=== PATIENT | female | born 1980 | race Caucasian/White ===

== ENCOUNTER 2019-09-14 09:17 | Outpatient (CLI) | payer OTHER, SELFPAY ==
--- NOTE | ~2019-09-14 | MM_ITS ---
EXAMINATION: MM screening tracie BI w alexi HISTORY: Screening mammogram TECHNIQUE: Craniocaudal and mediolateral oblique 3-D tomosynthesis images were obtained and synthetic 2-D images were generated. CAD analysis was submitted and interpreted. COMPARISON: No prior mammogram is available for comparison at this institution. BREAST PARENCHYMAL COMPOSITION: The breasts are heterogeneously dense, which may obscure small masses . FINDINGS: There is mild fibroglandular asymmetry. There is no evidence of suspicious mass, calcificat ion, or architectural distortion to suggest malignancy in either breast. There has been no suspicious interval change. IMPRESSION: 1. No mammographic evidence of malignancy. 2. Recommend routine screening mammography in one year. BI-RADS Category 2: Benign finding(s). Reviewed, dictated and finalized at location A.
== END 2019-09-14 09:18 | disposition home or self-care (01) ==
LOC: ANHIMG 09:19
PROVIDERS: PCP Internal Medicine; Visit Provider Obstetrics & Gynecology
DX: Z12.31 Encounter for screening mammogram for malignant neoplasm of breast (principal)
CPT/HCPCS: 77063; 77067

== ENCOUNTER 2020-09-19 14:12 | Outpatient (CLI) | payer OTHER, SELFPAY ==
--- NOTE | ~2020-09-19 | MM_ITS ---
EXAMINATION: MM screening tracie BI w alexi HISTORY: Screening TECHNIQUE: Craniocaudal and mediolateral oblique 3-D tomosynthesis images were obtained and synthetic 2-D images were generated. CAD analysis was submitted and interpreted. COMPARISON: 09/14/2019 BREAST PARENCHYMAL COMPOSITION: The breasts are heterogeneously dense, which may obscure small masses . FINDINGS: There is no evidence of suspicious mass, calcification, or architectural distortion to sugg est malignancy in either breast. There has been no suspicious interval change. IMPRESSION: 1. No mammographic evidence of malignancy. 2. Recommend routine screening mammography in one year. BI-RADS Category 1: Negative Reviewed, dictated and finalized at location A.
== END 2020-09-19 14:13 | disposition home or self-care (01) ==
LOC: ANHIMG 14:14
PROVIDERS: PCP Internal Medicine; Visit Provider Obstetrics & Gynecology
DX: Z12.31 Encounter for screening mammogram for malignant neoplasm of breast (principal)
CPT/HCPCS: 77063; 77067

== ENCOUNTER 2021-11-13 07:15 | Outpatient (CLI) | payer BC, SELFPAY ==
--- NOTE | ~2021-11-13 | MM_ITS ---
EXAMINATION: MM screening tracie BI w alexi HISTORY: Screening mammogram TECHNIQUE: Craniocaudal and mediolateral oblique 3-D tomosynthesis images were obtained and synthetic 2-D images were generated. CAD analysis was submitted and interpreted. COMPARISON: 09/19/2020, 09/14/2019 bilateral screening mammogram examinations BREAST PARENCHYMAL COMPOSITION: The breasts are heterogeneously dense, which may obscure small masses . FINDINGS: Stable fibroglandular asymmetry. There is no evidence of suspicious mass, calcification, or architectural distortion to suggest malignancy in either breast. There has been no suspicious interv al change. IMPRESSION: 1. No mammographic evidence of malignancy. 2. Recommend routine screening mammography in one year. BI-RADS Category 2: Benign finding(s). Reviewed, dictated and finalized at location A.
== END 2021-11-13 07:16 | disposition home or self-care (01) ==
LOC: CHSIMG 07:16
PROVIDERS: PCP Internal Medicine; Visit Provider Internal Medicine
DX: Z12.31 Encounter for screening mammogram for malignant neoplasm of breast (principal)
CPT/HCPCS: 77063; 77067

== ENCOUNTER 2023-01-13 07:20 | Outpatient (CLI) | payer OTHER, SELFPAY ==
--- NOTE | ~2023-01-13 | MM_ITS ---
EXAMINATION: MM screening tracie BI w alexi HISTORY: Screening mammogram TECHNIQUE: Craniocaudal and mediolateral oblique 3-D tomosynthesis images were obtained and synthetic 2-D images were generated. CAD analysis was submitted and interpreted. COMPARISON: 11/13/2021, a 321, 09/14/2019 BREAST PARENCHYMAL COMPOSITION:The breasts are heterogeneously dense, which may obscure small masses. FINDINGS: No suspicious mass, calcification, or architectural distortion are identified in either jerry ast to suggest malignancy. There has been no suspicious interval change. IMPRESSION: No mammographic evidence of malignancy. Recommend routine screening mammography in one year. BI-RADS Category 1: Negative Reviewed, dictated and finalized at location . ER TENDER
== END 2023-01-13 07:21 | disposition home or self-care (01) ==
LOC: CHSIMG 07:23
PROVIDERS: PCP Internal Medicine; Visit Provider Obstetrics & Gynecology
DX: Z12.31 Encounter for screening mammogram for malignant neoplasm of breast (principal)
CPT/HCPCS: 77063; 77067

== ENCOUNTER 2023-05-03 07:48 | Outpatient (CLI) | payer OTHER, SELFPAY ==
[2023-05-03 08:19] LABS: Appearance Urine Clear (Clear); Basophils Absolute Auto 0.05 K/mm3 (0.00-0.10); Basophils Percent Auto 0.7 % (0.0-1.0); Bilirubin Urine Negative (Negative); Blood Urine Negative (Negative); Color Urine Yellow (Yellow); Eosinophils Absolute Auto 0.25 K/mm3 (0.02-0.50); Eosinophils Percent Auto 3.7 % (1.0-6.0); Glucose Urine UA Negative (Negative); Hematocrit 42.2 % (35.0-49.0); Hemoglobin 14.1 g/dL (12.0-15.0); Immature Granulocyte Absolute 0.01 K/mm3 (0.00-0.00); Immature Granulocyte Percent A 0.1 % (0.0-0.0); Ketones Urine Negative (Negative); Leukocyte Esterase Ur Negative LEU/UL (Negative); Lymphocytes Absolute Auto 1.95 K/mm3 (1.10-4.50); Lymphocytes Percent Auto 28.7 % (18.0-42.0); Mean Corpuscular HGB Conc 33.4 g/dL (32-36); Mean Corpuscular Hemoglobin 32.5 pg (27.0-31.0); Mean Corpuscular Volume 97.2 fL (78.0-102.0); Monocytes Absolute Auto 0.45 K/mm3 (0.10-0.90); Monocytes Percent Auto 6.6 % (2.0-11.0); Neutrophils Absolute Auto 4.09 K/mm3 (1.70-7.20); Neutrophils Percent Auto 60.2 % (50.0-70.0); Nitrate Urine Negative (Negative); Platelet Count Result 269 K/mm3 (150-420); Protein Urine Negative (Negative); Red Blood Count 4.34 M/mm3 (4.20-5.40); Red Cell Distribution Width 11.7 % (11.6-14.4); Urobilinogen Urine 0.2 mg/dL (0.2-1.0); White Blood Count 6.8 K/mm3 (4.8-10.8)
[2023-05-03 08:22] LABS: Add Urine Microscopic? NO
[2023-05-03 10:19] LABS: Alanine Aminotransferase 25 U/L (14-59); Albumin Level 3.6 g/dL (3.4-5.0); Alkaline Phosphatase 50 U/L (46-116); Anion Gap 10 mmol/L (8-16); Aspartate Amino Transferase 13 U/L (15-37); Bilirubin,Total 0.3 mg/dL (0.00-1.00); Blood Urea Nitrogen 13 mg/dL (7-18); Calcium 8.7 mg/dL (8.5-10.1); Carbon Dioxide 28 mmol/L (21-32); Chloride 106 mmol/L (98-108); Cholesterol 167 mg/dL (0-200); Estimated Glomerular Filt Rate > 60; Glucose 86 mg/dL (70-99); HDL Direct 66 mg/dL (40-60); LDL Cholesterol Calculated 86 mg/dL (<130); Osmolality Calculated 297 mOsm/kg (285-295); Potassium 4.4 mmol/L (3.5-5.1); Sodium 144 mmol/L (136-145); Total Protein 6.6 g/dL (6.4-8.2); Triglycerides 73 mg/dL (0-150)
== END 2023-05-03 07:49 | disposition home or self-care (01) ==
LOC: CHSLAB 07:51
PROVIDERS: PCP Internal Medicine; Visit Provider Internal Medicine
DX: Z00.00 Encounter for general adult medical examination without abnormal findings (principal); N39.0 Urinary tract infection, site not specified
CPT/HCPCS: 36415; 80053; 80061; 81003; 84443; 85025

== ENCOUNTER 2023-06-14 09:09 | Outpatient (CLI) | payer OTHER, SELFPAY ==
[2023-06-14 09:21] LABS: Basophils Absolute Auto 0.05 K/mm3 (0.00-0.10); Eosinophils Absolute Auto 0.13 K/mm3 (0.02-0.50); Eosinophils Percent Auto 2.5 % (1.0-6.0); Hematocrit 43.8 % (35.0-49.0); Hemoglobin 14.6 g/dL (12.0-15.0); Immature Granulocyte Absolute 0.01 K/mm3 (0.00-0.00); Immature Granulocyte Percent A 0.2 % (0.0-0.0); Lymphocytes Absolute Auto 1.44 K/mm3 (1.10-4.50); Lymphocytes Percent Auto 28.1 % (18.0-42.0); Mean Corpuscular HGB Conc 33.3 g/dL (32-36); Mean Corpuscular Hemoglobin 32.5 pg (27.0-31.0); Mean Corpuscular Volume 97.6 fL (78.0-102.0); Mean Platelet Volume 9.9 fl (9.2-11.8); Monocytes Absolute Auto 0.37 K/mm3 (0.10-0.90); Monocytes Percent Auto 7.2 % (2.0-11.0); Neutrophils Absolute Auto 3.12 K/mm3 (1.70-7.20); Platelet Count Result 263 K/mm3 (150-420); Red Blood Count 4.49 M/mm3 (4.20-5.40); Red Cell Distribution Width 11.7 % (11.6-14.4); White Blood Count 5.1 K/mm3 (4.8-10.8)
[2023-06-14 10:12] LABS: Ferritin 87 ng/mL (8-252); Iron 88 ug/dL (50-170)
== END 2023-06-14 09:10 | disposition home or self-care (01) ==
PROVIDERS: PCP Internal Medicine; Visit Provider Internal Medicine
DX: R13.14 Dysphagia, pharyngoesophageal phase (principal)
CPT/HCPCS: 36415; 82728; 83540; 85025

== ENCOUNTER 2023-08-13 08:27 | Day surgery (SDC) | payer OTHER, SELFPAY ==
[2023-07-22 10:49] VITALS: BMI 28.9
--- NOTE | 2023-08-13 07:30 | P.PNAN_ITS ---
Anes - Initial Pre Proc Eval Procedure: Operation Date: 08/13/23 11:00 Proposed Procedures p Esophagogastroduodenoscopy - Brice Khan MD s Diagnostic Colonoscopy - Brice Khan MD Date/Time: 08/13/23 07:30 Surgeon: Brice Khan MD Pre Op Diagnosis: Diarrhea unspecified, dysphagia unspecified Patient Data Age: 43 Gender: F Height: 1.65 m Weight: 78.925 kg Allergies Allergy/AdvReac Type Severity Reaction Status Date / Time ibuprofen Allergy Mild Anaphylaxis Verified 08/13/23 10:04 Home Medications Medication Instructions Recorded Confirmed Type No Home Medications 08/13/23 08/13/23 History Patient hx anesthesia problems: none Family hx anesthesia problems: none Results Review: All pre-operative results and documents have been reviewed as part of the pre-operative evaluation. [facility] Past Medical History Medical History (System 07/23/23 @ 08:35 by Fredi Juares) Dysphagia Frequent loose stools Surgical History Surgical History (Updated 08/13/23 @ 07:30 by Reese Mcneal DO) History of tubal ligation Social History Social History (System 07/23/23 @ 08:35 by Fredi Juares) Smoking status: Never smoker Alcohol use details: 0-7 per week, socially Substance use type: does not use Living arrangements: with family Anes - Eval Final PreProcedure Day of Procedure 08/13/23 07:30 Patient weight: overweight Heart: regular rate and rhythm Lungs: clear to auscultation Airway: Mallampati scale class II Neurological: alert and oriented Last oral intake: >/= 8 hours ASA classification: I Emergent: no Anesthetic plan: proceed Anesthesia type and monitoring: general GIVS and standard monitoring Results Review: All pre-operative results and documents have been reviewed as part of the pre- operative evaluation. Informed Consent: The patient's anesthetic plan and its attendant risks and benefits were discussed with the patient/family/POA. Questions were solicited and answers provided to the satisfaction of the patient/family/POA.
--- NOTE | 2023-08-13 10:21 | WPDHPUPDATE1 ---
History and Physical Update Update Date/Time: 08/13/23 10:21 History and Physical has been reviewed, including an updated exam of the patient. There are NO changes in the patient's condition. Risks, benefits, and alternatives have been discussed and questions answered. Patient agrees to proceed with procedure.
[2023-08-13] MEDS: LACTATED RINGERS 1,000 ML 150 ML IV CONT (10:49)
[2023-08-13 11:21] VITALS: BP 99/56; PULSE 60; RESP 16; O2SAT 99
[2023-08-13 11:31] VITALS: BP 102/72; PULSE 57; RESP 15; O2SAT 100
[2023-08-13 11:41] VITALS: BP 109/75; PULSE 61; RESP 15; O2SAT 98
--- NOTE | 2023-08-13 14:14 | WPDANESPN ---
Anes - Prog Note Post-Op Date/Time: 08/13/23 14:14 Cardiovascular status: normal Respiratory status: normal Airway patency: baseline Mental status: baseline Post-Op hydration status: normal Vital Signs: Last Vital Signs Pulse 61 08/13/23 11:41 Resp 15 08/13/23 11:41 BP 109/75 08/13/23 11:41 Pulse Ox 98 08/13/23 11:41 O2 Del Method Room Air 08/13/23 11:41 Pain Score (VAS): 0 I/O: Intake & Output 08/12/23 08/13/23 08/13/23 23:59 07:59 15:59 Intake Total 300 Balance 300 Post-procedural complaints: none Patient Feedback: Patient satisfied with anesthetic care. Other Findings: Patient vital signs back to baseline. Patient denies nausea and vomiting. Patient's pain under control. Patient OK for discharge.
== END 2023-08-13 11:50 | disposition home or self-care (01) ==
PROVIDERS: PCP Internal Medicine; Visit Provider Internal Medicine Gastroenterology
PROC: 0DJ08ZZ Inspection of Upper Intestinal Tract, Via Natural or Artificial Opening Endoscopic (ICD-10-PCS; CPT 43235; principal; 2023-08-13 11:00)
PROC: 0DJD8ZZ Inspection of Lower Intestinal Tract, Via Natural or Artificial Opening Endoscopic (ICD-10-PCS; CPT 45378; 2023-08-13 11:00)
DX: Z12.11 Encounter for screening for malignant neoplasm of colon (principal); K64.8 Other hemorrhoids; K62.5 Hemorrhage of anus and rectum; Q39.4 Esophageal web; R13.19 Other dysphagia
CPT/HCPCS: 45378; 43450

== ENCOUNTER 2024-02-19 07:23 | Outpatient (CLI) | payer OTHER, SELFPAY ==
--- NOTE | ~2024-02-19 | MM_ITS ---
CORRECTED REPORT corrected ordering doctor SUSANA 02/20/24 This report was recreated on 02/20/24. Original report was H RECORDS CLERK EXAMINATION: MM screening tracie BI w alexi HISTORY: Screening mammogram TECHNIQUE: Craniocaudal and mediolateral oblique 3-D tomosynthesis images were obtained and synthetic 2-D images were generated. CAD analysis was submitted and interpreted. COMPARISON: 01/13/2023, 11/13/2021, 09/19/2020, 09/14/2019 BREAST PARENCHYMAL COMPOSITION:Dense: The breasts are heterogeneously dense, which may obscure small masses. FINDINGS: Possible small mass developing in the upper, inner left breast. Stable parenchymal appearance of the right breast. No suspicious microcalcifications. IMPRESSION: Possible developing upper, inner left breast mass. Spot compression views, and possibly ultrasound, recommended for further evaluation. BI-RADS Category 0: Incomplete: Needs additional imaging evaluation. Reviewed, dictated and finalized at location M. H RECORDS CLERK MTDD
== END 2024-02-19 07:24 | disposition home or self-care (01) ==
LOC: CHSIMG 07:25
PROVIDERS: PCP Internal Medicine; Visit Provider Pediatrics
DX: Z12.31 Encounter for screening mammogram for malignant neoplasm of breast (principal)
CPT/HCPCS: 77063; 77067

== ENCOUNTER 2024-02-20 09:26 | Outpatient (CLI) | payer OTHER, SELFPAY ==
--- NOTE | ~2024-02-20 | MMUS_ITS ---
EXAMINATION: MM diagnostic tracie LT w alexi, US breast LT limited HISTORY: Left breast mass TECHNIQUE: Additional 3-D tomosynthesis images of the left breast were performed and synthetic 2-D im ages were generated. CAD analysis was submitted and interpreted. High resolution limited left breast ultrasound was performed. COMPARISON: 02/19/2024 BREAST PARENCHYMAL COMPOSITION:Dense: The breasts are heterogeneously dense, which may obscure small masses. FINDINGS: MAMMOGRAPHIC FINDINGS: Spot compression views confirm a probable 6 mm low-density mass of the upper, inner left breast. ULTRASOUND: There is a 4 x 3 x 2 mm simple cyst at the 10:00 position left breast, 7 cm from the nipple. IMPRESSION: Subcentimeter simple left breast cyst, as above. No findings which are suspicious for malignancy. BI-RADS Category 2: Benign finding(s). [place]ed, [place] [facility] [place] [employer] IMPRESSION: Subcentimeter simple left breast cyst, as above. No findings which are suspici ous for malignancy. BI-RADS Category 2: Benign finding(s).
== END 2024-02-20 09:27 | disposition home or self-care (01) ==
PROVIDERS: PCP Internal Medicine; Visit Provider Internal Medicine
DX: R92.8 Other abnormal and inconclusive findings on diagnostic imaging of breast (principal)
CPT/HCPCS: 76642; 77061; 77065; G0279

== ENCOUNTER 2024-09-14 15:01 | Outpatient (CLI) | payer OTHER, SELFPAY ==
--- NOTE | ~2024-09-14 | XR_ITS ---
EXAMINATION: XR chest 2V Exam Date/Time: 09/14/2024 15:08 CDT HISTORY: dysphagia, chronic diarrhea Comparison: CT abdomen pelvis, same date. RESULT: Lines, tubes, and devices: None. Lungs and pleura: No focal consolidation, pleural effusion, or pneumothorax. Minimal biapical pleura l scarring. Cardiomediastinal silhouette: Normal. Other: No acute osseous or upper abdominal finding. IMPRESSION: No acute cardiopulmonary process. Reviewed, dictated and finalized at location K.
--- NOTE | ~2024-09-14 | CT_ITS ---
CT of the Abdomen and Pelvis: Indication: Chronic diarrhea, dysphagia Technique: 2.5 mm axial scans were obtained through the abdomen and pelvis following intravenous adm inistration of 100 cc of Omnipaque 350. Dose reduction technique was used on this scan by utilizing a utomated exposure control and iterative reconstruction technique. The dose-length product (DLP) was 7 77.75 mGy-cm. Findings: Scans through the lung bases are unremarkable. The liver, spleen, pancreas, gallbladder, adrenals and kidneys are within normal limits. No evidence of aortic aneurysm. No lymphadenopathy. No bowel obstruction or bowel wall thickening. There is no evidence to suggest acute appendicitis. Images through the pelvis were performed. Urinary bladder unremarkable. No pelvic mass seen. No ascit es. Impression: No significant abnormalities seen. Reviewed, dictated and finalized at [facility]. Impression: No significant abnormalities seen.
== END 2024-09-14 15:02 | disposition home or self-care (01) ==
PROVIDERS: PCP Internal Medicine; Visit Provider Internal Medicine
DX: R13.10 Dysphagia, unspecified (principal); R19.7 Diarrhea, unspecified
CPT/HCPCS: 71046; 74177; Q9967

== ENCOUNTER 2024-10-13 13:51 | Outpatient (CLI) | payer OTHER, SELFPAY ==
--- NOTE | ~2024-10-13 | XR_ITS ---
MODIFIED ESOPHAGRAM HISTORY: Dysphagia. TECHNIQUE: Modified barium esophagram was performed on 10/13/2024. I administered fluoroscopy and performed the exam with speech pathologist. Patient was seated for lateral fluoroscopic imaging for ingestion of thin liquids, pudding, solids and quantified amounts, followed by thin liquids in uncontrolled amounts. This was recorded on tape. A single fluoroscopic spot image was also recorded. The DAP for this procedure was 0.667 Gycm2. The amount of fluoroscopy time used during this procedure was 0.9 minutes. FINDINGS: Oral stage: Adequate function. Pharyngeal stage: Adequate function. Cervical/esophageal stage: Adequate function. IMPRESSION: Patient tolerated regular consistency oral feedings in the upright position. Please correlate with speech pathologist findings and specific feeding recommendations. Reviewed, dictated and finalized at location A. IMPRESSION: Patient tolerated regular consistency oral feedings in the upright position. Please correlate with speech pathologist findings and specific feedi ng recommendations.
--- NOTE | 2024-10-13 15:24 | REHSTMBS ---
Assessment and note entered by Susan Jason, FREELANCE PROGRAMMER/APP DEVELOPER Modified Barium Swallow Evaluation Feeding Type Recommended Oral Food Consistency Regular, Level 7 Liquid Consistency Thin (0) ST Clinical Summary The patient is a 44 year old female referred for a MBS study secondary to persistent dysphagia for solids. The patient reports a sticking sensation with solids over the past few year. She states since starting on a new medication, pantoprazole the symptoms are much improved. The patient was positioned in the lateral view and provided the following consistencies: 5cc/thin liquid, cup thin liquid, straw thin liquid, pudding mixed with barium paste, and cracker/solid coated with barium . Oral Stage: Timely oral preparation and transit observed for all consistencies. Pharyngeal Stage: Swallow initiation was noted to occur in a timely manner for all consistencies without viewed aspiration or penetration. No residual was viewed to remain in the valleculae or pyriform sinus across consistencies. Recommend 1. Regular Diet and 2. Thin liquid 3. Consideration of Barium Swallow to further evaluate esophageal function.
== END 2024-10-13 13:52 | disposition home or self-care (01) ==
PROVIDERS: PCP Internal Medicine; Visit Provider Internal Medicine
DX: R13.14 Dysphagia, pharyngoesophageal phase (principal)
CPT/HCPCS: 74230; 92611